=== PATIENT | male | born 1980 | race Asian ===

== ENCOUNTER → 2016-04-03 | Outpatient (REF) | payer MEDICARE ==
[~2016-04-03] MED LIST: /PANT40TA; /SUCR1TA; ACET65TA; ACTO15TA; ALDA25TA2; ATEN25TA; ATRIPLA; AZITHROMYCIN; BACT800T; BACTRIM SS; ECOT325T5; GANCICLOVIR; GLIP10TA97; GLUC500T; ISENTRESS; LISI40TA; MAALSUS; MAG-TAB; MULTIVIT; PRIL20CA; PRIL40CA; SIMV40TA2; VALCYTE; VITA100027; VITAMIN D50000 UNT; ZITH600T; [UNRECOGNIZED DRUG - OTHER]; [UNRECOGNIZED DRUG - OTHER]; [UNRECOGNIZED DRUG - OTHER]
[2016-04-03 12:52] LABS: ALBUMIN 3.9 GM/DL (3.2-5.2); ALKALINE PHOSPHATASE 97 U/L (45-117); ALT/SGPT 23 U/L (12-78); ANION GAP 7 MEQ/L (8-16); AST/SGOT 19 U/L (15-37); BILIRUBIN,TOTAL 0.3 MG/DL (0.2-1.0); BLOOD UREA NITROGEN 16 MG/DL (7-18); CALCIUM LEVEL 8.7 MG/DL (8.5-10.1); CARBON DIOXIDE LEVEL 30 MEQ/L (21-32); CHLORIDE LEVEL 108 MEQ/L (98-107); CHOLESTEROL LEVEL 185 MG/DL (<200); CREATININE FOR GFR 1.68 MG/DL (0.70-1.30); GLOMERULAR FILTRATION RATE 49.5 (>60); GLUCOSE, FASTING 81 MG/DL (70-105); POTASSIUM SERUM 4.4 MEQ/L (3.5-5.1); SODIUM LEVEL 145 MEQ/L (136-145); TOTAL PROTEIN 7.8 GM/DL (6.4-8.2); TRIGLYCERIDES LEVEL 143 MG/DL (<150)
[2016-04-04 14:16] LABS: %CD3+CD4+CD8+ 0.3 % (Not Estab.); %CD3+CD4+CD8- 17.1 % (Not Estab.); %CD3+CD4-CD8+ 49.9 % (Not Estab.); %CD3+CD4-CD8- 2.7 % (Not Estab.); ABS CD3+CD4+CD8+ 7 /uL (Not Estab.); ABS CD3+CD4+CD8- 393 /uL (Not Estab.); ABS CD3+CD4-CD8+ 1148 /uL (Not Estab.); ABS CD3+CD4-CD8- 62 /uL (Not Estab.); CD4/CD8 NYSDOH RATIO 0.34 (Not Estab.); Eosinophils 2 % (.); HCT 42.9 % (37.5-51.0); HGB 14.3 g/dL (12.6-17.7); Monocytes 6 % (.); Neutrophils 41 % (.); WBC 4.6 x10E3/uL (3.4-10.8)
== END ==
LOC: M SFHCPLAZ 09:43
PROVIDERS: ATTEND Internal Medicine Infectious Disease
DX: B20 Human immunodeficiency virus [HIV] disease (principal); E78.00 Pure hypercholesterolemia, unspecified; Z79.899 Other long term (current) drug therapy
CPT/HCPCS: 36415; 80053; 80061; 81001; 86360; 86780; 87491; 87536; 87591; G0463

== ENCOUNTER → 2017-08-05 | Outpatient (REF) | payer MEDICARE, SELFPAY ==
[2017-08-05 16:12] LABS: ALKALINE PHOSPHATASE 74 U/L (45-117); ALT/SGPT 18 U/L (12-78); ANION GAP 7 MEQ/L (8-16); AST/SGOT 16 U/L (7-37); BILIRUBIN,TOTAL 0.5 MG/DL (0.2-1.0); BLOOD UREA NITROGEN 17 MG/DL (7-18); CALCIUM LEVEL 8.3 MG/DL (8.5-10.1); CARBON DIOXIDE LEVEL 30 MEQ/L (21-32); CHLORIDE LEVEL 105 MEQ/L (98-107); CHOLESTEROL LEVEL 275 MG/DL (<200); CHOLESTEROL RISK RATIO 5.092 (<5); CREATININE FOR GFR 1.51 MG/DL (0.70-1.30); GLOMERULAR FILTRATION RATE 55.6 (>60); GLUCOSE, FASTING 91 MG/DL (70-100); HDL CHOLESTEROL 54 MG/DL (>40); LDL CHOLESTEROL 192.4 MG/DL (<100); NON-HDL-C 221 MG/DL; POTASSIUM SERUM 4.4 MEQ/L (3.5-5.1); SODIUM LEVEL 142 MEQ/L (136-145); TOTAL PROTEIN 7.6 GM/DL (6.4-8.2); TRIGLYCERIDES LEVEL 143 MG/DL (<150)
[2017-08-05 18:20] LABS: APPEARANCE, URINE HAZY (CLEAR); BACTERIA, URINE AUTO NEGATIVE (NEGATIVE); BILIRUBIN, URINE AUTO NEGATIVE (NEGATIVE); BLOOD, URINE BLOOD NEGATIVE (NEGATIVE); COLOR, URINE YELLOW (YELLOW); GLUCOSE, URINE (UA) AUTO NEGATIVE (NEGATIVE); KETONE, URINE AUTO NEGATIVE (NEGATIVE); LEUKOCYTE ESTERASE, URINE AUTO NEGATIVE (NEGATIVE); MUCUS, URINE SMALL (NEGATIVE); NITRITE, URINE AUTO NEGATIVE (NEGATIVE); PROTEIN, URINE AUTO NEGATIVE (NEGATIVE); RBC, URINE AUTO 0 /HPF (0-3); SPECIFIC GRAVITY URINE AUTO 1.019 (1.002-1.035); SQUAMOUS EPITHELIAL CELL UR AU 0 /HPF (0-6); UROBILINOGEN, URINE AUTO 0.2 mg/dL (0.0-2.0); WBC, URINE AUTO 0 /HPF (0-3)
[2017-08-05 19:56] LABS: CHLAMYDIA DNA AMPLIFICATION NEGATIVE (NEGATIVE); GC DNA AMPLIFICATION NEGATIVE (NEGATIVE)
[2017-08-07 14:12] LABS: % CD8 Pos Lymph 49.2 % (12.0-35.5); %CD4 Pos Lymphs 20.7 % (30.8-58.5); ABS Eosinophils 0.1 x10E3/uL (0.0-0.4); ABS Lymphs 1.9 x10E3/uL (0.7-3.1); ABS Monocytes 0.3 x10E3/uL (0.1-0.9); ABS Neutophils 1.9 x10E3/uL (1.4-7.0); Abs CD4 Helper 393 /uL (359-1519); Abs CD8 Suppres 935 /uL (109-897); CD4/CD8 Ratio 0.42 (0.92-3.72); Eosinophils 3 % (Not Estab.); HCT 45.2 % (37.5-51.0); HGB 14.7 g/dL (13.0-17.7); Immature Grans 0 % (Not Estab.); Lymphocytes 44 % (Not Estab.); MCH 33.1 pg (26.6-33.0); MCHC 32.5 g/dL (31.5-35.7); MCV 102 fL (79-97); Monocytes 8 % (Not Estab.); Neutrophils 45 % (Not Estab.); Platelets 176 x10E3/uL (150-379); RBC 4.44 x10E6/uL (4.14-5.80); RDW 14.3 % (12.3-15.4); WBC 4.3 x10E3/uL (3.4-10.8)
[2017-08-08 14:17] LABS: HIV-1 RNA PCR QUANT 2 LC550285 <20 copies/mL (.)
== END ==
LOC: M LABDRAWP 15:38
DX: B20 Human immunodeficiency virus [HIV] disease (principal); E78.00 Pure hypercholesterolemia, unspecified
CPT/HCPCS: 80053

== ENCOUNTER → 2024-11-03 | Outpatient (REF) ==
[~2024-11-03] MED LIST changes: -/PANT40TA; -/SUCR1TA; +PROT1TAB2; +SUCR1TAB56
== END ==
LOC: M LAB 11:56
PROVIDERS: ATTEND Family Medicine
DX: Z01.89 Encounter for other specified special examinations (principal)